=== PATIENT | male | born 1995 ===

== ENCOUNTER 2016-08-23 16:58 | Emergency (ER) | payer OTHER ==
[~2016-08-23] VITALS: Ht 170.2 cm; Wt 54.4 kg
--- NOTE | 2016-08-23 17:29 | NUR ---
JENI COMPLETED, DR MCCULLOUGH GAVE THE PT VERBAL ACI, PT AMBULATED W/O DIFF/TOOK ALL BELONGINGS.
[2016-08-23] MEDS ORDERED: NEOMY/BACITRA/POLYMYXIN B OINT UD PACKET TP ONE ×2 (17:30→17:35)
[2016-08-23 17:32] VITALS: BP 145/66
== END 2016-08-23 17:33 | disposition home or self-care (01) ==
LOC: ER 17:01
DX: M79.642 Pain in left hand (principal); M79.641 Pain in right hand
CPT/HCPCS: A4663